=== PATIENT | female | born 1955 | race Caucasian/White ===

== ENCOUNTER 2018-10-20 07:32 | Emergency (ER) | payer OTHER ==
[~2018-10-20] VITALS: Ht 157.5 cm; Wt 65.0 kg
[2018-10-20 08:37] LABS: HEMATOCRIT 40.1 % (37.0-47.0); HEMOGLOBIN 13.2 g/dl (12.0-16.0); IMMATURE GRANULOCYTES 0.6 % (0.0-5.0); MEAN CELL VOLUME 97.8 fL CALC (80.0-100.0); MEAN CORPUSCULAR HGB 32.2 pG CALC (26.0-32.0); MEAN CORPUSCULAR HGB CONC 32.9 g/L CALC (32.0-36.0); NEUT# 3.69 thou/uL (2.00-7.15); RED BLOOD COUNT 4.1 mill/uL (4.20-5.60)
[2018-10-20 09:04] LABS: ALBUMIN 4.7 g/dL (3.2-5.0); ALKALINE PHOSPHATASE 90 u/l (38-126); ANION GAP 16 (6-22 (CALC)); BILIRUBIN, TOTAL 0.5 mg/dL (0.0-1.4); BUN 22 mg/dL (8-23); BUN/CREATININE RATIO 24 (12-20 (CALC)); CARBON DIOXIDE 24 mmol/l (22-30); CHLORIDE 108 mmol/l (95-108); CREATININE 0.9 mg/dL (0.5-1.0); GFR > 60 ML/MIN (>=60 (CALC)); GFR FOR AFR.AMER. > 60 ML/MIN (>=60 (CALC)); LIPASE 129 u/l (23-300); POTASSIUM 4.1 mmol/l (3.5-5.1); SGOT/AST 20 u/l (9-36); SODIUM 143 mmol/l (137-146); TOTAL PROTEIN 7.4 g/dL (6.3-8.2)
[2018-10-20 10:03] LABS: URINE BILIRUBIN - DIPSTICK NEGATIVE (NEGATIVE); URINE BLOOD DIPSTICK TRACE-INTACT (NEGATIVE); URINE COLOR YELLOW; URINE GLUCOSE - DIPSTICK NEGATIVE (NEGATIVE); URINE KETONE NEGATIVE (NEGATIVE); URINE LEUK ESTERASE NEGATIVE (NEGATIVE); URINE NITRITE - DIPSTICK NEGATIVE (Negative); URINE PROTEIN - DIPSTICK NEGATIVE (NEG-TRACE); URINE SPECIFIC GRAVITY 1.015; URINE UROBILINOGEN - DIPSTICK 0.2 E.U./dL (0.2)
[2018-10-20] MEDS ORDERED: MOTRIN400 MG PO (10:54)
[2018-10-20 11:23] VITALS: BP 124/67
== END 2018-10-20 11:35 | disposition home or self-care (01) | DRG 392 ==
LOC: ED 07:32
PROVIDERS: Family Medicine
DX: R10.31 Right lower quadrant pain (principal); N13.30 Unspecified hydronephrosis; R11.2 Nausea with vomiting, unspecified; R19.7 Diarrhea, unspecified
CPT/HCPCS: Q9967

== ENCOUNTER 2022-07-19 08:46 | Emergency (ER) | payer OTHER ==
[~2022-07-19] VITALS: Ht 157.5 cm; Wt 81.0 kg
[~2022-07-19 08:46] MED LIST: MOTRIN400 MG PO
[2022-07-19 08:51] VITALS: BP 120/73
[2022-07-19] MEDS ORDERED: SB CLOTRIMAZ1 % EX (09:02)
[2022-07-19] MEDS ORDERED: DIFLUCAN150 MG PO (09:02)
[2022-07-19 09:31] LABS: URINE BILIRUBIN - DIPSTICK NEGATIVE (NEGATIVE); URINE BLOOD DIPSTICK NEGATIVE (NEGATIVE); URINE COLOR YELLOW; URINE GLUCOSE - DIPSTICK NEGATIVE (NEGATIVE); URINE KETONE NEGATIVE (NEGATIVE); URINE PROTEIN - DIPSTICK NEGATIVE (NEG-TRACE); URINE UROBILINOGEN - DIPSTICK 0.2 E.U./dL (0.2)
[2022-07-19 09:35] LABS: URINE LEUK ESTERASE SMALL (NEGATIVE); URINE NITRITE - DIPSTICK NEGATIVE (Negative)
[2022-07-19 09:36] LABS: URINE BACTERIA FEW hpf; URINE EPITHELIAL CELLS FEW EPI/hpf (0-FEW)
[2022-07-19] MEDS ORDERED: BACTRIM DS1 TAB PO (09:43)
[2022-07-19 09:47] VITALS: BP 120/73
== END 2022-07-19 09:50 | disposition home or self-care (01) | DRG 607 ==
LOC: ED 08:46
PROVIDERS: Emergency Medicine
DX: B37.2 Candidiasis of skin and nail (principal); N39.0 Urinary tract infection, site not specified; R32 Unspecified urinary incontinence

== ENCOUNTER 2022-08-01 08:03 | Emergency (ER) | payer OTHER ==
[~2022-08-01] VITALS: Ht 157.5 cm; Wt 79.5 kg
[~2022-08-01 08:03] MED LIST changes: +BACTRIM DS1 TAB PO; +DIFLUCAN150 MG PO; +SB CLOTRIMAZ1 % EX
[2022-08-01 08:20] VITALS: BP 121/73
[2022-08-01 08:32] LABS: URINE BILIRUBIN - DIPSTICK NEGATIVE (NEGATIVE); URINE BLOOD DIPSTICK TRACE-INTACT (NEGATIVE); URINE COLOR YELLOW; URINE GLUCOSE - DIPSTICK NEGATIVE (NEGATIVE); URINE KETONE NEGATIVE (NEGATIVE); URINE PROTEIN - DIPSTICK NEGATIVE (NEG-TRACE); URINE UROBILINOGEN - DIPSTICK 0.2 E.U./dL (0.2)
[2022-08-01 08:34] LABS: URINE LEUK ESTERASE SMALL (NEGATIVE); URINE NITRITE - DIPSTICK NEGATIVE (Negative)
[2022-08-01 08:47] LABS: URINE RBC 0-2 RBC/hpf (0-5)
[2022-08-01] MEDS ORDERED: DIFLUCAN150 MG PO (10:17)
[2022-08-01] MEDS ORDERED: METRONIDAZOLE500 MG PO (10:17)
[2022-08-01] MEDS ORDERED: NITROFURANTN100 M2 PO (10:17)
[2022-08-01 10:34] VITALS: BP 121/73
== END 2022-08-01 10:34 | disposition home or self-care (01) | DRG 690 ==
LOC: ED 08:03
PROVIDERS: Family Medicine
DX: N39.0 Urinary tract infection, site not specified (principal); N89.8 Other specified noninflammatory disorders of vagina

== ENCOUNTER 2024-11-24 09:54 | Emergency (ER) | payer OTHER ==
[2024-11-24] VITALS (11 sets, daily range): BP systolic 102–130; BP diastolic 58–72
[~2024-11-24] VITALS: Ht 165.1 cm; Wt 82.0 kg
[~2024-11-24 09:54] MED LIST changes: +ALL DAY10 MG PO; +ERYTHROCIN STE250 MG PO; +METRONIDAZOLE500 MG PO; +NITROFURANTN100 M2 PO; +PREDNISONE50 MG PO; +ZOFRAN4 MG/TAB PO; +[UNRECOGNIZED DRUG - OTHER] PO
[2024-11-24] MEDS ORDERED: ONDANSETRON HCl 4 MG/2 ML SDV IV ONE (10:35)
[2024-11-24 10:53] LABS: URINE BILIRUBIN - DIPSTICK Negative (NEGATIVE); URINE BLOOD DIPSTICK Trace-intact (NEGATIVE); URINE CLARITY Clear; URINE GLUCOSE - DIPSTICK Negative (NEGATIVE); URINE KETONE Negative (NEGATIVE); URINE LEUK ESTERASE Negative (Negative); URINE NITRITE - DIPSTICK Negative (Negative); URINE PH 6.5 (4.5-8.0); URINE PROTEIN - DIPSTICK Negative (NEG-TRACE); URINE SPECIFIC GRAVITY 1.015; URINE UROBILINOGEN - DIPSTICK 0.2 E.U./dL (0.2)
[2024-11-24 10:59] LABS: BASO% 0.1 % (0-3); EOS% 1.7 % (0-8); IMMATURE GRANULOCYTES 0.2 % (0.0-5.0); LYMPH% 8.3 % (15-41); MEAN CELL VOLUME 96.3 fL CALC (80.0-100.0); MEAN CORPUSCULAR HGB 32.1 pG CALC (26.0-32.0); MEAN CORPUSCULAR HGB CONC 33.3 g/dL CAL (32.0-36.0); NEUT# 10.1 thou/uL (2.00-7.15); NEUT% 82.7 % (42-76); RED BLOOD COUNT 4.05 mill/uL (4.20-5.60)
[2024-11-24 11:20] LABS: URINE COLOR Yellow
[2024-11-24 11:57] LABS: CREATININE 0.7 mg/dL (0.5-1.0); POTASSIUM 4.2 mmol/l (3.5-5.1); TOTAL PROTEIN 6.5 g/dL (6.3-8.2)
[2024-11-24 11:59] LABS: BILIRUBIN, TOTAL 0.9 mg/dL (0.02-1.3)
[2024-11-24] MEDS ORDERED: ISOVUE-300 (Iopamidol) 100 ML SDV IV ONE (12:05)
== END 2024-11-24 14:42 | disposition home or self-care (01) | DRG 392 ==
LOC: ED 09:54
PROVIDERS: Family Medicine
DX: R10.9 Unspecified abdominal pain (principal)
CPT/HCPCS: J2405; Q9967